=== PATIENT | male | born 1970 | race Caucasian/White ===

== ENCOUNTER 2018-09-18 11:38 | Outpatient (REF) | payer OTHER, SELFPAY ==
[2018-09-18 22:05] LABS: Anion Gap 12.7 mmol/L (3-11); BUN 12 mg/dL (7-18); CO2 27.3 mmol/L (21.0-32.0); CREATININE 0.74 mg/dL (0.70-1.30); Calcium 9.4 mg/dL (8.5-10.1); Calculated LDL 120 mg/dL; Chloride 103 mmol/L (98-107); Cholesterol 181 mg/dL (50-200); Glucose 82 mg/dL (70-100); HDL Cholesterol 53 mg/dL (40-60); Magnesium 1.9 mg/dL (1.8-2.4); Potassium 3.9 mmol/L (3.5-5.1); Sodium 143 mmol/L (136-145); Triglyceride 40 mg/dL (30-150)
== END 2018-09-18 11:58 ==
LOC: NCHCN 11:38
PROVIDERS: PCP Family Medicine; Visit Provider Family Medicine
DX: E87.1 Hypo-osmolality and hyponatremia (principal); G47.62 Sleep related leg cramps; I60.9 Nontraumatic subarachnoid hemorrhage, unspecified; Z13.220 Encounter for screening for lipoid disorders
CPT/HCPCS: 80048; 80061; 83721; 83735